=== PATIENT | male | born 1975 | race Caucasian/White ===

== ENCOUNTER 2022-07-17 05:33 | Emergency (ER) | payer OTHER ==
[~2022-07-17] VITALS: Ht 188 cm; Wt 104.3 kg
--- NOTE | 2022-07-17 05:42 | NUR ---
Patient BIB [facility] from home for c/o black stools for 3 days and vomiting bright red blood that started this AM. Patient upon arrival c/o weakness and vomiting bright red blood. Patient vomitted bright red blood upon arrival to the ER.
[2022-07-17] MEDS ORDERED: OCTREOTIDE ACETATE INJ 500 MCG in IV DEXTROSE 5% 100 ML IV ONE (05:45)
[2022-07-17] MEDS ORDERED: OCTREOTIDE ACETATE 50 MCG/1 ML ML IV ONE (05:45)
[2022-07-17] MEDS ORDERED: IV NORMAL SALINE 1000 ML BAG IV ONE (05:45)
[2022-07-17] MEDS ORDERED: PANTOPRAZOLE SODIUM 40 MG VIAL ONE (05:49)
[2022-07-17] MEDS: PANTOPRAZOLE SODIUM IV 80 MG in IV DEXTROSE 5% 500 ML IV ONE ×2 (05:50→06:15)
[2022-07-17] MEDS ORDERED: OCTREOTIDE ACETATE 50 MCG/1 ML ML ONE (05:50)
[2022-07-17] MEDS ORDERED: OCTREOTIDE ACETATE 500 MCG/1 ML VIAL ONE (05:50)
[2022-07-17] MEDS ORDERED: ONDANSETRON 4 MG/2 ML VIAL ONE (05:54)
[2022-07-17 05:56] LABS: HEMATOCRIT 39.3 % (36.7-47.1); MEAN CORPUSCULAR HEMOGLOBIN 26.3 uug (23.8-33.4); MEAN CORPUSCULAR VOLUME 84.8 fL (73.0-96.2); PLATELET COUNT (AUTO) 437 K/uL (152-348)
[2022-07-17] MEDS ORDERED: ONDANSETRON 4 MG/2 ML VIAL IV ONE (06:00)
[2022-07-17 06:09] LABS: CARBON DIOXIDE 25 mmol/L (21-32); CHLORIDE 105 mmol/L (98-107); CREATININE 1.2 mg/dL (0.6-1.3); GLUCOSE 130 mg/dL (74-106); POTASSIUM 4.4 mmol/L (3.5-5.1); UREA NITROGEN, BLOOD 37 mg/dL (7-18)
[2022-07-17] MEDS ORDERED: CITA20TA19 PO (06:13)
[2022-07-17] MEDS ORDERED: LEVO25TA2 PO (06:13)
[2022-07-17] MEDS ORDERED: BUPR300T52 PO (06:13)
[2022-07-17 06:17] LABS: ALANINE AMINOTRANSFERASE 79 U/L (16-63); ALKALINE PHOSPHATASE 51 U/L (50-136); ASPARTATE AMINOTRANSFERASE 39 U/L (15-37); BILIRUBIN,DIRECT 0.1 mg/dL (0.0-0.2); BILIRUBIN,TOTAL 0.6 mg/dL (0.2-1.0); TOTAL PROTEIN, SERUM 6.8 g/dL (6.4-8.2)
[2022-07-17 06:25] LABS: LIPASE 132 U/L (73-393)
--- NOTE | 2022-07-17 07:02 | NUR ---
Called telecommunications facility examiner Dr. Rizzo for GI consult. No one picked, up left a message.
--- NOTE | 2022-07-17 07:07 | NUR ---
Called [facility] for panel call.
--- NOTE | 2022-07-17 07:40 | NUR ---
assumed patient care 47 years old male presents to er with vomiting blood, sleeping easily aroused to verbal stimuli vss will continue to monitor.
--- NOTE | 2022-07-17 08:33 | NUR ---
Urvashi rodriguez in EDM - 07/17/22 at 0837 by SHANAE REPORT WAS GIVEN TO [facility]. PT WAS TRANSFERED TO [facility] , ROOM #[id number] BY [facility]. REPORT WAS GIVEN TO AMBULANCE RN.
[2022-07-17 09:15] VITALS: BP 128/66
--- NOTE | 2022-07-17 09:27 | NUR ---
patient admit to [facility] report given to nurse Osborne all questions answered vss, alert, oriented x4 no nausea vomiting, no blood.
[2022-07-17 10:00] VITALS: BP 121/51
--- NOTE | 2022-07-17 10:42 | NUR ---
Pt states that he wants to go AMA and that a friend will pick him up to go to [facility] where his doctors are and where he was previously treated for similar problems. Risk of going AMA explained to patient. Dr Dontrell Tripp informed and he said to that it was OK for the pt to go AMA.
--- NOTE | 2022-07-17 11:35 | NUR ---
Pt leaving AMA no SOB, dizziness, or bleeding or distress noted. VSS and pt is saturating @ 98% on room air
--- NOTE | 2022-07-17 11:36 | NUR ---
pt left ED with friend picking him up.All of the patient's possessions remained with the patient and he took all of his belongings with him when departing.
== END 2022-07-17 11:36 | disposition left against medical advice (07) ==
LOC: ER 05:36 → UNDOADMIN 06:20 → TRANSITION 06:20 → ER 11:36 → UNDODISIN 11:45
DX: K92.2 Gastrointestinal hemorrhage, unspecified (principal); R57.8 Other shock; D62 Acute posthemorrhagic anemia; E03.9 Hypothyroidism, unspecified; Z90.81 Acquired absence of spleen; R79.89 Other specified abnormal findings of blood chemistry
CPT/HCPCS: 99291; 96365; 87426; 80076; 80048; 83690; 85025; 85730; 86850; 86900; 86901; 86920; 84484; 36415; 93005; 71045; 96368; J2354 ×3; J2405; C9113 ×2; J7060; J7040; A4663; G0378